=== PATIENT | female | born 2000 | race Caucasian/White ===

== ENCOUNTER 2019-02-15 14:07 | Outpatient (CLI) | payer OTHER ==
--- NOTE | 2019-02-15 14:33 | RAD ---
Exam: Chest 2 views HISTORY:Cough Comparison: None FINDINGS: There is no lobar consolidation, effusion, or pneumothorax. Mild added density at the lower lung zone s bilaterally, on the frontal view, may relate to superimposition of body wall soft tissues, as opacification on the lateral projection is not confirmed. Cardiac silhouette is normal in size. [place] structures are intact. IMPRESSION: No acute abnormalities.
== END 2019-02-15 14:08 | disposition home or self-care (01) ==
LOC: BICRAD 14:07
PROVIDERS: ATTEND Physician Assistant
DX: R05 Cough (principal)
CPT/HCPCS: 71046